=== PATIENT | female | born 1975 | race African-American/Black ===

== ENCOUNTER 2016-09-17 01:46 | Emergency (ER) | payer OTHER ==
[2016-09-17] MEDS ORDERED: NORCO 5/325MG TABLET (BULK) As Ordered ONE (02:21)
[2016-09-17] MEDS ORDERED: BACTRIM 160MG/800MG DS TAB As Ordered ONE (02:21)
--- NOTE | 2016-09-17 03:22 | EDDOCDS ---
Physician Documentation [facility] Name: Anayeli Del Toro Age: 40 yrs Sex: Female : 1975 Arrival Date: 09/17/2016 Time: 01:46 Bed TR8 Private MD: Disposition: 09/17/16 02:27 Discharged to Home/Self Care. Impression: Cutaneous abscess of buttock - RIGHT, EARLY, NONFLUCTUANT. - Condition is Stable. - Discharge Instructions: Abscess. - Prescriptions for Gary 5- 325 mg Oral Tablet - take 1 tablet by ORAL route every 6 hours As needed MDD: 4 tabs; 16 tablet. Bactrim DS 800- 160 mg Oral Tablet - take 1 tablet by ORAL route every 12 hours for 10 days; 20 tablet. - Medication Reconciliation, Local Pharmacy Hours form. - Follow up: Raymond Ingram DO; When: 2 - 3 days; Reason: Recheck today's complaints, Continuance of care. - Problem is new. - Symptoms have improved. - Notes: USE MEDICATIONS INSTRUTCED. USE WARM BATHES 2-3 TIMES PER DAY. CALL YOUR DOCTOR SUNDAY TO ARRANGE FOR A REFERRAL TO DR INGRAM FOR FURTHER EVALUATION. RETURN TO THE ER IF FEVER STARTS, INCREASED PAIN, SWELLING, OR OTHER CONCERNING SYMPTOMS BEGIN Historical: - Allergies: Tramadol HCl (pass out); - Home Meds: 1. Iron CR 250 mg Oral cpER daily (Last dose: 09/16/2016) 2. Skelaxin 800 mg Oral tab 1 tab 3-4 times daily as needed (Last dose: Unknown) 3. Tylenol 325 mg Oral tab 2 tabs every 4 hours (Last dose: Unknown) 4. Vitamin C 25 mg Oral tab 25 mg daily (Last dose: 09/16/2016) 5. Vitamin D Oral daily (Last dose: 09/16/2016) 6. Chantix 1 mg Oral tab 1 tab 2 times per day for Smoking Cessation (Last dose: 09/16/2016) - PMHx: Anemia; Diabetes - NIDDM: controlled; impingment syndrome right shouulder; vitamin d defiecency; - PSHx: Gastric Bypass; nasal scraping; - Social history: Smoking status: Patient uses tobacco products, light tobacco smoker. No barriers to communication noted, The patient speaks fluent [place] Citizen, Speaks appropriately for age. - Family history: Not pertinent. - : The pt / caregiver states he / she is not on anticoagulants. Home medication list is obtained from the patient. - Exposure Risk Screening:: None identified. 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 Vital Signs: 02:02 BP 111 / 74; Pulse 85; Resp 18; Temp 97.8(O); Pulse Ox 98% ; Weight 74.84 kg / 164.99 kmg1 lbs (R); Height 5 ft. 4 in. (162.56 cm) (R); Pain /; 02:02 Body Mass Index 28.32 (74.84 kg, 162.56 cm) [facility] MDM: 02:20 Trimethoprim-Sulfamethoxazole 160 mg-800 mg (DS) 1 tabs PO once ordered. ck7 02:20 HYDROcodone-acetaminophen 4 pack- 5 mg-325 mg 1 packets PO Per package directions; ck7 Dispense with patient. 1 po q4h prn for pain ordered. 02:46 Financial registration complete. hs2 02:47 [facility] Payment Agreement was scanned into [employer] and attached to record. hs2 Administered Medications: 02:25 Drug: Trimethoprim-Sulfamethoxazole 1 tabs [sulfamethoxazole 800 mg-trimethoprim 160 mg kmg1 tablet (1 tabs)] Route: PO; 02:25 Drug: HYDROcodone-acetaminophen 4 pack- 1 packets [hydrocodone 5 mg-acetaminophen 325 kmg1 mg tablet (1 tabs)] {Co-Signature: gerald (Raffi Giles RN).} Route: PO; Signatures: Melissa Piper RN RN [facility] Elvis Harley RPA-C RPA-Cck7 Argenis Lopez, Reg Reg hs2 Raffi duarte The chart was reviewed and I authenticate all verbal orders and agree with the evaluation and treatment provided.Attachments: 02:47 [facility] Payment Agreement hs2 [facility]
--- NOTE | 2016-09-17 03:22 | EDDOCDS ---
Nurse's Notes [facility] Name: Anayeli Del Toro Age: 40 yrs Sex: Female : 1975 Arrival Date: 09/17/2016 Time: 01:46 Bed TR8 Private MD: Diagnosis: Cutaneous abscess of buttock-RIGHT, EARLY, NONFLUCTUANT Presentation: 09/17 01:58 Presenting complaint: Patient states: Abscess in vaginal area. Suicide/Homicide risk [facility] assessment- the patient denies having any suicidal and/or homicidal ideations and does not present with any other emotional, behavioral or mental health complaints. Status: The patient is a dependent. Transition of care: patient was not received from another setting of care. 01:58 Acuity: ELIZABETH Level 4 [facility] 01:58 Method Of Arrival: Walkin/Carried/Asstd [facility] 01:58 Adult Sepsis Screening: The patient does not have new or worsening altered mentation. kmg1 Patient's respiratory rate is less than 22. Systolic blood pressure is greater than 100. Patient has a qSOFA score of 0- Negative Sepsis Screen. Triage Assessment: 01:58 The patient is triaged at the bedside. See Assessment in Nurses Notes section of ED km record. 02:02 General: Appears in no apparent distress, comfortable, Behavior is appropriate for age, kmg1 cooperative, pleasant. Pain: Location: groin Pain currently is 5 out of 10 on a pain scale. Quality of pain is described as sharp. HIV screening NA for this visit Offered previously. Derm: Abscess located on groin. 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 Historical: - Allergies: Tramadol HCl (pass out); - Home Meds: 1. Iron CR 250 mg Oral cpER daily (Last dose: 09/16/2016) 2. Skelaxin 800 mg Oral tab 1 tab 3-4 times daily as needed (Last dose: Unknown) 3. Tylenol 325 mg Oral tab 2 tabs every 4 hours (Last dose: Unknown) 4. Vitamin C 25 mg Oral tab 25 mg daily (Last dose: 09/16/2016) 5. Vitamin D Oral daily (Last dose: 09/16/2016) 6. Chantix 1 mg Oral tab 1 tab 2 times per day for Smoking Cessation (Last dose: 09/16/2016) - PMHx: Anemia; Diabetes - NIDDM: controlled; impingment syndrome right shouulder; vitamin d defiecency; - PSHx: Gastric Bypass; nasal scraping; - Social history: Smoking status: Patient uses tobacco products, light tobacco smoker. No barriers to communication noted, The patient speaks fluent [place]i, Speaks appropriately for age. - Family history: Not pertinent. - : The pt / caregiver states he / she is not on anticoagulants. Home medication list is obtained from the patient. - Exposure Risk Screening:: None identified. Screenin: Screening information is obtained from the patient. Fall risk: No risks identified. km Assistance ADL's: requires no assistance with activities of daily living. Abuse/DV Screen: The patient / caregiver reports he/she is: not in a situation that causes fear, pain or injury. Nutritional screening: No deficits noted. Advance Directives: There is no active DNR order. home support is adequate. Assessment: : General: No change in prior assessment. See triage assessment. [facility] Vital Signs: 02:02 BP 111 / 74; Pulse 85; Resp 18; Temp 97.8(O); Pulse Ox 98% ; Weight 74.84 kg (R); kmg1 Height 5 ft. 4 in. (162.56 cm) (R); Pain 5/10; 02:02 Body Mass Index 28.32 (74.84 kg, 162.56 cm) [facility] Vitals: 02:02 Log In Time: September 17, 2016 at 01:48. [facility] ED Course: 01:47 Patient visited by Argenis Lopez Reg. hs2 01:47 Patient moved to Waiting hs2 01:59 Triage Initiated kmg1 02:18 Elvis Harley RPA-C is PHCP. ck7 02:18 Warren Padilla DO is Attending Physician. ck7 02:19 Patient visited by Elvis Harley RPA-C. ck7 02:19 Patient moved to Triage 1 ajs 02:19 Patient moved to Waiting ck7 02:19 Patient moved to Triage 1 ajs 02:27 Raymond Ingram DO is Referral Physician. ck7 02:27 The patient / caregiver is instructed regarding the plan of care and ED course. kmg1 :27 No IV's were initiated during this patient's visit. Assisted Provider with vaginal exam.kmg1 02:47 [facility] Payment Agreement was scanned into [employer] and attached to record. hs2 02:57 Patient moved to TR8 [facility] Administered Medications: 02:25 Drug: Trimethoprim-Sulfamethoxazole 1 tabs [sulfamethoxazole 800 mg-trimethoprim 160 mg kmg1 tablet (1 tabs)] Route: PO; 02:25 Drug: HYDROcodone-acetaminophen 4 pack- 1 packets [hydrocodone 5 mg-acetaminophen 325 kmg1 mg tablet (1 tabs)] {Co-Signature: gerald (Raffi Giles RN).} Route: PO; Order Results: There are currently no results for this order. Outcome: 02:27 Discharge ordered by Provider. ck7 02:45 Discharge Assessment: Patient awake, alert and oriented x 3. No cognitive and/or kmg1 functional deficits noted. Patient verbalized understanding of disposition instructions. Patient awake and alert. patient administered narcotics - no. The following High Risk Discharge criteria are identified: None. Discharged to home ambulatory. Condition: stable. Discharge instructions given to patient, Instructed on discharge instructions, follow up and referral plans. medication usage, Demonstrated understanding of instructions, medications, Pt was receptive of discharge instructions/ teaching. Prescriptions given X 2. No special radiology studies were completed. Property sent home with patient. 03:[address] [facility] Signatures: Melissa Piper RN RN g1 Hillary Mcdonald Christopher, RPA-C RPA-Cck7 Argenis Lopez, Reg Reg hs2 Raffi duarte MTDD
--- NOTE | 2016-09-19 04:22 | EDDOCDS ---
Physician Documentation [facility] Name: Anayeli Del Toro Age: 40 yrs Sex: Female : 1975 Arrival Date: 09/17/2016 Time: 01:46 Bed TR8 Private MD: Disposition: 09/17/16 02:27 Discharged to Home/Self Care. Impression: Cutaneous abscess of buttock - RIGHT, EARLY, NONFLUCTUANT. - Condition is Stable. - Discharge Instructions: Abscess. - Prescriptions for Jaroso 5- 325 mg Oral Tablet - take 1 tablet by ORAL route every 6 hours As needed MDD: 4 tabs; 16 tablet. Bactrim DS 800- 160 mg Oral Tablet - take 1 tablet by ORAL route every 12 hours for 10 days; 20 tablet. - Medication Reconciliation, Local Pharmacy Hours form. - Follow up: Raymond Ingram DO; When: 2 - 3 days; Reason: Recheck today's complaints, Continuance of care. - Problem is new. - Symptoms have improved. - Notes: USE MEDICATIONS INSTRUTCED. USE WARM BATHES 2-3 TIMES PER DAY. CALL YOUR DOCTOR SUNDAY TO ARRANGE FOR A REFERRAL TO DR INGRAM FOR FURTHER EVALUATION. RETURN TO THE ER IF FEVER STARTS, INCREASED PAIN, SWELLING, OR OTHER CONCERNING SYMPTOMS BEGIN Historical: - Allergies: Tramadol HCl (pass out); - Home Meds: 1. Iron CR 250 mg Oral cpER daily (Last dose: 09/16/2016) 2. Skelaxin 800 mg Oral tab 1 tab 3-4 times daily as needed (Last dose: Unknown) 3. Tylenol 325 mg Oral tab 2 tabs every 4 hours (Last dose: Unknown) 4. Vitamin C 25 mg Oral tab 25 mg daily (Last dose: 09/16/2016) 5. Vitamin D Oral daily (Last dose: 09/16/2016) 6. Chantix 1 mg Oral tab 1 tab 2 times per day for Smoking Cessation (Last dose: 09/16/2016) - PMHx: Anemia; Diabetes - NIDDM: controlled; impingment syndrome right shouulder; vitamin d defiecency; - PSHx: Gastric Bypass; nasal scraping; - Social history: Smoking status: Patient uses tobacco products, light tobacco smoker. No barriers to communication noted, The patient speaks fluent [place], Speaks appropriately for age. - Family history: Not pertinent. - : The pt / caregiver states he / she is not on anticoagulants. Home medication list is obtained from the patient. - Exposure Risk Screening:: None identified. 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 4 in. (162.56 cm) (R); Pain 5/10; 02:02 Body Mass Index 28.32 (74.84 kg, 162.56 cm) [facility] MDM: 02:20 Trimethoprim-Sulfamethoxazole 160 mg-800 mg (DS) 1 tabs PO once ordered. ck7 02:20 HYDROcodone-acetaminophen 4 pack- 5 mg-325 mg 1 packets PO Per package directions; ck7 Dispense with patient. 1 po q4h prn for pain ordered. 02:46 Financial registration complete. hs2 02:47 [facility] Payment Agreement was scanned into [employer] and attached to record. hs2 22:30 T-Sheet-- Draft Copy was scanned into [employer] and attached to record. klr Administered Medications: 02:25 Drug: Trimethoprim-Sulfamethoxazole 1 tabs [sulfamethoxazole 800 mg-trimethoprim 160 mg kmg1 tablet (1 tabs)] Route: PO; 02:25 Drug: HYDROcodone-acetaminophen 4 pack- 1 packets [hydrocodone 5 mg-acetaminophen 325 kmg1 mg tablet (1 tabs)] {Co-Signature: gerald (Raffi Giles RN).} Route: PO; Signatures: Melissa Piper, RN RN kmg1 Elvis Harley, JANIS-C RPA-Cck7 Argenis Lopez, Reg Reg hs2 Carey Loyd RN The chart was reviewed and I authenticate all verbal orders and agree with the evaluation and treatment provided.Attachments: 02:47 [facility] Payment Agreement hs2 22:30 T-Sheet-- Draft Copy klr Chart Complete MTDD
--- NOTE | 2016-09-19 04:22 | EDDOCDS ---
Physician Documentation [facility] Name: Anayeli Del Toro Age: 40 yrs Sex: Female : 1975 Arrival Date: 09/17/2016 Time: 01:46 Bed TR8 Private MD: Disposition: 09/17/16 02:27 Discharged to Home/Self Care. Impression: Cutaneous abscess of buttock - RIGHT, EARLY, NONFLUCTUANT. - Condition is Stable. - Discharge Instructions: Abscess. - Prescriptions for Alpha 5- 325 mg Oral Tablet - take 1 tablet by ORAL route every 6 hours As needed MDD: 4 tabs; 16 tablet. Bactrim DS 800- 160 mg Oral Tablet - take 1 tablet by ORAL route every 12 hours for 10 days; 20 tablet. - Medication Reconciliation, Local Pharmacy Hours form. - Follow up: Raymond Ingram DO; When: 2 - 3 days; Reason: Recheck today's complaints, Continuance of care. - Problem is new. - Symptoms have improved. - Notes: USE MEDICATIONS INSTRUTCED. USE WARM BATHES 2-3 TIMES PER DAY. CALL YOUR DOCTOR SUNDAY TO ARRANGE FOR A REFERRAL TO DR INGRAM FOR FURTHER EVALUATION. RETURN TO THE ER IF FEVER STARTS, INCREASED PAIN, SWELLING, OR OTHER CONCERNING SYMPTOMS BEGIN Historical: - Allergies: Tramadol HCl (pass out); - Home Meds: 1. Iron CR 250 mg Oral cpER daily (Last dose: 09/16/2016) 2. Skelaxin 800 mg Oral tab 1 tab 3-4 times daily as needed (Last dose: Unknown) 3. Tylenol 325 mg Oral tab 2 tabs every 4 hours (Last dose: Unknown) 4. Vitamin C 25 mg Oral tab 25 mg daily (Last dose: 09/16/2016) 5. Vitamin D Oral daily (Last dose: 09/16/2016) 6. Chantix 1 mg Oral tab 1 tab 2 times per day for Smoking Cessation (Last dose: 09/16/2016) - PMHx: Anemia; Diabetes - NIDDM: controlled; impingment syndrome right shouulder; vitamin d defiecency; - PSHx: Gastric Bypass; nasal scraping; - Social history: Smoking status: Patient uses tobacco products, light tobacco smoker. No barriers to communication noted, The patient speaks fluent Fijian, Speaks appropriately for age. - Family history: Not pertinent. - : The pt / caregiver states he / she is not on anticoagulants. Home medication list is obtained from the patient. - Exposure Risk Screening:: None identified. 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 4 in. (162.56 cm) (R); Pain 5/10; 02:02 Body Mass Index 28.32 (74.84 kg, 162.56 cm) [facility] MDM: 02:20 Trimethoprim-Sulfamethoxazole 160 mg-800 mg (DS) 1 tabs PO once ordered. ck7 02:20 HYDROcodone-acetaminophen 4 pack- 5 mg-325 mg 1 packets PO Per package directions; ck7 Dispense with patient. 1 po q4h prn for pain ordered. 02:46 Financial registration complete. hs2 02:47 [facility] Payment Agreement was scanned into [employer] and attached to record. hs2 22:30 T-Sheet-- Draft Copy was scanned into [employer] and attached to record. klr Administered Medications: 02:25 Drug: Trimethoprim-Sulfamethoxazole 1 tabs [sulfamethoxazole 800 mg-trimethoprim 160 mg kmg1 tablet (1 tabs)] Route: PO; 02:25 Drug: HYDROcodone-acetaminophen 4 pack- 1 packets [hydrocodone 5 mg-acetaminophen 325 kmg1 mg tablet (1 tabs)] {Co-Signature: gerald (Raffi Giles RN).} Route: PO; Signatures: Melissa Piper, RN RN kmg1 Elvis Harley, JANIS-C RPA-Cck7 Argenis Lopez, Reg Reg hs2 Carey Loyd RN The chart was reviewed and I authenticate all verbal orders and agree with the evaluation and treatment provided.Attachments: 02:47 [facility] Payment Agreement hs2 22:30 T-Sheet-- Draft Copy klr Chart Complete MTDD
--- NOTE | 2016-09-19 04:22 | EDDOCDS ---
Nurse's Notes [facility] Name: Anayeli Del Toro Age: 40 yrs Sex: Female : 1975 Arrival Date: 09/17/2016 Time: 01:46 Bed TR8 Private MD: Diagnosis: Cutaneous abscess of buttock-RIGHT, EARLY, NONFLUCTUANT Presentation: 09/17 01:58 Presenting complaint: Patient states: Abscess in vaginal area. Suicide/Homicide risk [facility] assessment- the patient denies having any suicidal and/or homicidal ideations and does not present with any other emotional, behavioral or mental health complaints. Status: The patient is a dependent. Transition of care: patient was not received from another setting of care. 01:58 Acuity: ELIZABETH Level 4 [facility] 01:58 Method Of Arrival: Walkin/Carried/Asstd [facility] 01:58 Adult Sepsis Screening: The patient does not have new or worsening altered mentation. kmg1 Patient's respiratory rate is less than 22. Systolic blood pressure is greater than 100. Patient has a qSOFA score of 0- Negative Sepsis Screen. Triage Assessment: 01:58 The patient is triaged at the bedside. See Assessment in Nurses Notes section of ED km record. 02:02 General: Appears in no apparent distress, comfortable, Behavior is appropriate for age, kmg1 cooperative, pleasant. Pain: Location: groin Pain currently is 5 out of 10 on a pain scale. Quality of pain is described as sharp. HIV screening NA for this visit Offered previously. Derm: Abscess located on groin. 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 Iron CR 250 mg Oral cpER daily (Last dose: 09/16/2016) 2. Skelaxin 800 mg Oral tab 1 tab 3-4 times daily as needed (Last dose: Unknown) 3. Tylenol 325 mg Oral tab 2 tabs every 4 hours (Last dose: Unknown) 4. Vitamin C 25 mg Oral tab 25 mg daily (Last dose: 09/16/2016) 5. Vitamin D Oral daily (Last dose: 09/16/2016) 6. Chantix 1 mg Oral tab 1 tab 2 times per day for Smoking Cessation (Last dose: 09/16/2016) - PMHx: Anemia; Diabetes - NIDDM: controlled; impingment syndrome right shouulder; vitamin d defiecency; - PSHx: Gastric Bypass; nasal scraping; - Social history: Smoking status: Patient uses tobacco products, light tobacco smoker. No barriers to communication noted, The patient speaks fluent [place]an, Speaks appropriately for age. - Family history: Not pertinent. - : The pt / caregiver states he / she is not on anticoagulants. Home medication list is obtained from the patient. - Exposure Risk Screening:: None identified. Screenin: Screening information is obtained from the patient. Fall risk: No risks identified. km Assistance ADL's: requires no assistance with activities of daily living. Abuse/DV Screen: The patient / caregiver reports he/she is: not in a situation that causes fear, pain or injury. Nutritional screening: No deficits noted. Advance Directives: There is no active DNR order. home support is adequate. Assessment: : General: No change in prior assessment. See triage assessment. [facility] Vital Signs: 02:02 BP 111 / 74; Pulse 85; Resp 18; Temp 97.8(O); Pulse Ox 98% ; Weight 74.84 kg (R); kmg1 Height 5 ft. 4 in. (162.56 cm) (R); Pain 5/10; 02:02 Body Mass Index 28.32 (74.84 kg, 162.56 cm) [facility] Vitals: 02:02 Log In Time: September 17, 2016 at 01:48. [facility] ED Course: 01:47 Patient visited by Argenis Lopez Reg. hs2 01:47 Patient moved to Waiting hs2 01:59 Triage Initiated kmg1 02:18 Elvis Harley RPA-C is PHCP. ck7 02:18 Warren Padilla DO is Attending Physician. ck7 02:19 Patient visited by Elvis Harley RPA-C. ck7 02:19 Patient moved to Triage 1 ajs 02:19 Patient moved to Waiting ck7 02:19 Patient moved to Triage 1 ajs 02:27 Raymond Ingram DO is Referral Physician. ck7 02:27 The patient / caregiver is instructed regarding the plan of care and ED course. kmg1 :27 No IV's were initiated during this patient's visit. Assisted Provider with vaginal exam.kmg1 02:47 [facility] Payment Agreement was scanned into [employer] and attached to record. hs2 02:57 Patient moved to [place] [id number] 22:30 T-Sheet-- Draft Copy was scanned into [employer] and attached to record. klr Administered Medications: 02:25 Drug: Trimethoprim-Sulfamethoxazole 1 tabs [sulfamethoxazole 800 mg-trimethoprim 160 mg kmg1 tablet (1 tabs)] Route: PO; 02:25 Drug: HYDROcodone-acetaminophen 4 pack- 1 packets [hydrocodone 5 mg-acetaminophen 325 kmg1 mg tablet (1 tabs)] {Co-Signature: gerald (Raffi Giles RN).} Route: PO; Order Results: There are currently no results for this order. Outcome: 02:27 Discharge ordered by Provider. ck7 02:45 Discharge Assessment: Patient awake, alert and oriented x 3. No cognitive and/or kmg1 functional deficits noted. Patient verbalized understanding of disposition instructions. Patient awake and alert. patient administered narcotics - no. The following High Risk Discharge criteria are identified: None. Discharged to home ambulatory. Condition: stable. Discharge instructions given to patient, Instructed on discharge instructions, follow up and referral plans. medication usage, Demonstrated understanding of instructions, medications, Pt was receptive of discharge instructions/ teaching. Prescriptions given X 2. No special radiology studies were completed. Property sent home with patient. 03:21 Patient left the ED. [facility] Signatures: Melissa Piper, RN RN g1 Hillary Mcdonald Christopher, RPA-C RPA-Cck7 Argenis Lopez, Reg Reg 2 Carey Loyd r Raffi duarte Chart Complete MTDD
== END 2016-09-17 03:21 | disposition home or self-care (01) ==
LOC: M ED 01:46
DX: L02.31 Cutaneous abscess of buttock (principal); E11.9 Type 2 diabetes mellitus without complications; D64.9 Anemia, unspecified; E55.9 Vitamin D deficiency, unspecified; M75.41 Impingement syndrome of right shoulder; Z79.899 Other long term (current) drug therapy; Z88.5 Allergy status to narcotic agent; Z98.84 Bariatric surgery status

== ENCOUNTER → 2017-03-27 | Outpatient (REF) | payer OTHER | LOC: M SFHCLERA 09:33 | PROVIDERS: ATTEND Nurse Practitioner Family | DX: R30.0 Dysuria (principal) ==

== ENCOUNTER → 2017-10-01 | Outpatient (CLI) | payer OTHER | LOC: M RAD 13:36 | DX: N63.20 Unspecified lump in the left breast, unspecified quadrant (principal); Z80.3 Family history of malignant neoplasm of breast | CPT/HCPCS: 77066 ==

== ENCOUNTER → 2018-05-17 | Outpatient (REF) | payer OTHER | LOC: M LAB REF 19:11 | DX: N39.0 Urinary tract infection, site not specified (principal) ==

== ENCOUNTER → 2018-11-01 | Outpatient (CLI) | payer OTHER ==
--- NOTE | 2018-11-02 07:19 | REP ---
LEFT BREAST ULTRASOUND: 11/01/2018. CLINICAL HISTORY: Palpable lump periareolar region left breast for 1 year intermittently painful, some changes associated with it each month. Palpable finding of 4-o'clock position. FINDINGS: Scanning left breast from 3-o'clock position to 6-o'clock position with palpable lump at 4- o'clock position. There is a hypoechoic area in the dermal region of 1.8 x 1.8 x 0.4 cm. It is near the nipple. It has internal echoes with only trace amount of through transmission and no shadowing. No color flow within. IMPRESSION: BIRADS 0: BI-RADS/ACR category 0 mammogram, Incomplete: Need additional imaging evaluation and/or prior mammograms for comparison. Recommend the patient have bilateral mammogram with diagnostic mammogram of the left side. She is due for annual mammogram with her previous exam 10/01/2017. The sonographic findings most likely represent inspissated secretions within a sebaceous cyst or similar finding. Nevertheless, correlation with mammography suggested. Electronically Signed by Yefri Tsai MD 11/02/2018 12:03 P
== END ==
LOC: M RAD 13:37
PROVIDERS: ATTEND Family Medicine
DX: N63.23 Unspecified lump in the left breast, lower outer quadrant (principal)

== ENCOUNTER → 2018-11-15 | Outpatient (REF) | payer OTHER | LOC: M SFHCPLAZ 12:53 | PROVIDERS: ATTEND Internal Medicine Rheumatology | DX: M25.50 Pain in unspecified joint (principal); Z98.84 Bariatric surgery status; E11.42 Type 2 diabetes mellitus with diabetic polyneuropathy ==

== ENCOUNTER → 2018-11-15 | Outpatient (CLI) | payer OTHER ==
--- NOTE | 2018-11-15 17:11 | REP ---
BILATERAL MAMMOGRAM WITH DIAGNOSTIC MAMMOGRAM LEFT BREAST AND LEFT BREAST ULTRASOUND: Family history of breast cancer at age 45 in maternal aunt and at age 25 in a maternal cousin and at age 39 in maternal cousin. Tyrer-zick lifetime risk of breast cancer 13.4%. There is a history of a palpable lump near the left nipple laterally for the past year fluctuating in size. The area is marked on the skin with a triangular marker and additional spot compression views of the area are performed. Comparison is made with prior study 10/01/2017 as well as other prior exams. There is mild to moderate symmetrical fibroglandular tissue bilaterally which appears unchanged. There is no mass or architectural distortion. No suspicious clusters of microcalcifications are seen. Real-time sonographic evaluation of the left breast are performed laterally near the nipple. There is again noted an oval superficial hypoechoic area which appears to be in the skin measuring 9 x 4 x 11 mm. This has decreased in size since the prior ultrasound of 11/01/2018 at which time it measured 18 x 4 x 18 mm. This may represent a sebaceous cyst. It appears to be benign. IMPRESSION: ACR 2 benign. No mass or clustered microcalcifications mammographically. In the left breast laterally near the nipple at the site of the palpable lump there is an oval hypoechoic area which appears to be in the skin measuring 9 x 4 x 11 mm. This has decreased in size since the recent ultrasound of 11/01/2018 consistent with a benign entity, possibly a sebaceous cyst. Recommend followup mammogram in one year. This mammogram was interpreted with the aid of an FDA-approved computer-aided detection system. The patient states she had a clinical breast exam in 02/2018. The patient letter being requested was M2. Electronically Signed by Raymond Diaz MD 11/18/2018 12:43 P
== END ==
LOC: M RAD 14:39
PROVIDERS: ATTEND Family Medicine
DX: N63.20 Unspecified lump in the left breast, unspecified quadrant (principal); Z80.3 Family history of malignant neoplasm of breast
CPT/HCPCS: 76642; 77066; G0463

== ENCOUNTER → 2020-11-04 | Outpatient (CLI) | payer OTHER ==
--- NOTE | 2020-11-04 09:37 | REP ---
INDICATION: S/P FALL/TRIPPING INJURY, AFFECTING SECOND TOE, HX OF TOE FX COMPARISON: None. TECHNIQUE: AP, lateral, bilateral oblique views left foot. FINDINGS: Acute oblique fracture of the 2nd toe proximal phalanx. Remainder of the examination is normal. IMPRESSION: Nondisplaced fracture of the 2nd toe proximal phalanx.. <Electronically signed by Richie Sanchez > 11/04/20 0933
== END ==
LOC: M ADAMS 08:46
PROVIDERS: ATTEND Nurse Practitioner Family
DX: S92.514A Nondisplaced fracture of proximal phalanx of right lesser toe(s), initial encounter for closed fracture (principal); W19.XXXA Unspecified fall, initial encounter; Y92.9 Unspecified place or not applicable; Y99.9 Unspecified external cause status; M79.674 Pain in right toe(s); M79.675 Pain in left toe(s)

== ENCOUNTER 2021-10-03 16:41 | Inpatient (IN) | payer OTHER ==
[~2021-10-03] VITALS: Ht 162.6 cm; Wt 68.2 kg
[2021-10-03 18:02] LABS: BASO # 0.1 10^3/uL (0.0-0.2); BASO % 0.8 % (0.0-1.0); EOS # 0.3 10^3/uL (0.0-0.5); EOS % 1.8 % (0.0-3.0); LYMPH # 3.5 10^3/uL (1.5-5.0); LYMPH % 25.1 % (24.0-44.0); MEAN CORPUSCULAR HEMOGLOBIN 16.5 pg (27.0-33.0); MEAN CORPUSCULAR HGB CONC 25.4 g/dl (32.0-36.5); MEAN CORPUSCULAR VOLUME 64.9 fl (80.0-96.0); MONO % 7.1 % (2.0-8.0); NEUTROPHILS # 8.9 10^3/uL (1.5-8.5); NEUTROPHILS % 64.9 % (36.0-66.0); PLATELET COUNT, AUTOMATED 407 10^3/uL (150-450); RED BLOOD COUNT 2.91 10^6/uL (4.00-5.40); WHITE BLOOD COUNT 13.8 10^3/uL (4.0-10.0)
[2021-10-03 18:10] LABS: HEMATOCRIT 18.9 % (36.0-47.0); HEMOGLOBIN 4.8 g/dl (12.0-15.5)
[2021-10-03 18:17] LABS: BLOOD UREA NITROGEN 12 MG/DL (7-18); CALCIUM LEVEL 8.2 MG/DL (8.5-10.1); CARBON DIOXIDE LEVEL 24 MEQ/L (21-32); CHLORIDE LEVEL 109 MEQ/L (98-107); CREATININE FOR GFR 0.56 MG/DL (0.55-1.30); GLOMERULAR FILTRATION RATE > 60.0 (>58); GLUCOSE, FASTING 82 MG/DL (70-100); INR 0.94; POTASSIUM SERUM 3.9 MEQ/L (3.5-5.1); SODIUM LEVEL 140 MEQ/L (136-145)
[2021-10-03 20:09] LABS: ALT/SGPT 11 U/L (12-78); BLOOD UREA NITROGEN 13 MG/DL (7-18); CALCIUM LEVEL 7.8 MG/DL (8.5-10.1); CARBON DIOXIDE LEVEL 24 MEQ/L (21-32); CHLORIDE LEVEL 111 MEQ/L (98-107); CREATININE FOR GFR 0.49 MG/DL (0.55-1.30); GLOMERULAR FILTRATION RATE > 60.0 (>58); GLUCOSE, FASTING 83 MG/DL (70-100); POTASSIUM SERUM 3.8 MEQ/L (3.5-5.1); SODIUM LEVEL 142 MEQ/L (136-145)
[2021-10-03 20:10] LABS: ALBUMIN 2.9 GM/DL (3.2-5.2); BILIRUBIN,DIRECT < 0.1 MG/DL (0.0-0.2); BILIRUBIN,TOTAL 0.1 MG/DL (0.2-1.0); IRON (FE) 8 UG/DL (50-170); PERCENT SATURATION 1.7 % (13.2-45.0); TOTAL IRON BINDING CAPACITY 467 UG/DL (250-450); TOTAL PROTEIN 6.3 GM/DL (6.4-8.2)
[2021-10-03] MEDS: PANTOPRAZOLE 40MG VIAL (C9113 PER 1) IV SCH (21:00)
[2021-10-03] MEDS ORDERED: HumaLOG INSULIN (NovoLOG) PER UNIT SC SCH (21:00)
[2021-10-03] MEDS ORDERED: C 50TAB PO (21:04)
[2021-10-03] MEDS ORDERED: SFHIBU200 PO (21:04)
[2021-10-03] MEDS ORDERED: GABA-1171 PO (21:04)
[2021-10-03] MEDS ORDERED: ERGO500029 PO (21:04)
[2021-10-03] MEDS ORDERED: FERR29CA PO (21:04)
[2021-10-03] MEDS ORDERED: LIDO1PAD TOP (21:04)
[2021-10-03] MEDS ORDERED: HOME MED LIST COMPLETE! XX SCH (21:05)
[2021-10-03 21:09] LABS: VITAMIN B12 LEVEL 475 PG/ML (247-911)
[2021-10-03 21:37] LABS: FERRITIN 3 NG/ML (8-252)
[2021-10-03 22:40] VITALS: BP 99/54
[2021-10-03 22:55] VITALS: BP 100/56
[2021-10-03] MEDS ORDERED: ACETAMINOPHEN TAB 650MG DOSE (2X325MG) PO PRN (23:10)
[2021-10-03] MEDS ORDERED: GLUCOSE 4GM CHEW TABLET PO PRN (23:10)
[2021-10-03] MEDS ORDERED: GLUCAGON INJ 1MG VIAL SC PRN (23:10)
[2021-10-03] MEDS ORDERED: DEXTROSE 50% 50 ML SYRINGE IV PRN (23:10)
[2021-10-03 23:55] VITALS: BP 104/54
[2021-10-04] VITALS (11 sets, daily range): BP systolic 95–120; BP diastolic 53–73
[2021-10-04] MEDS: HumaLOG INSULIN (NovoLOG) PER UNIT SC SCH ×2 (07:30→12:00)
[2021-10-04 07:33] LABS: HEMATOCRIT 24.9 % (36.0-47.0); MEAN CORPUSCULAR HEMOGLOBIN 19.1 pg (27.0-33.0); MEAN CORPUSCULAR HGB CONC 28.1 g/dl (32.0-36.5); PLATELET COUNT, AUTOMATED 399 10^3/uL (150-450); RED BLOOD COUNT 3.66 10^6/uL (4.00-5.40); WHITE BLOOD COUNT 8.9 10^3/uL (4.0-10.0)
[2021-10-04 07:59] LABS: BLOOD UREA NITROGEN 10 MG/DL (7-18); CARBON DIOXIDE LEVEL 22 MEQ/L (21-32); CHLORIDE LEVEL 114 MEQ/L (98-107); CREATININE FOR GFR 0.39 MG/DL (0.55-1.30); FERRITIN 4 NG/ML (8-252); GLOMERULAR FILTRATION RATE > 60.0 (>58); GLUCOSE, FASTING 79 MG/DL (70-100); IRON (FE) 220 UG/DL (50-170); LDH LACTATE DEHYDROGENASE 179 U/L (84-246); PERCENT SATURATION 53.1 % (13.2-45.0); POTASSIUM SERUM 3.6 MEQ/L (3.5-5.1); SODIUM LEVEL 142 MEQ/L (136-145); TOTAL IRON BINDING CAPACITY 414 UG/DL (250-450)
[2021-10-04] MEDS ORDERED: CYANOCOBALAMIN 500 MCG TAB PO SCH (09:00)
[2021-10-04 10:28] LABS: HEMATOCRIT 26.4 % (36.0-47.0); HEMOGLOBIN 7.4 g/dl (12.0-15.5); MEAN CORPUSCULAR HEMOGLOBIN 19.6 pg (27.0-33.0); MEAN CORPUSCULAR VOLUME 69.8 fl (80.0-96.0); PLATELET COUNT, AUTOMATED 386 10^3/uL (150-450); RED BLOOD COUNT 3.78 10^6/uL (4.00-5.40); WHITE BLOOD COUNT 9.2 10^3/uL (4.0-10.0)
[2021-10-04] MEDS: PANTOPRAZOLE 40MG VIAL (C9113 PER 1) IV SCH (10:37)
[2021-10-04] MEDS ORDERED: IRON SUCROSE 200 MG in NS 100 ML IV ONE (12:00)
[2021-10-04] MEDS ORDERED: POTASSIUM CHLORIDE 10MEQ SR TABLET PO ONE (13:25)
[2021-10-04 14:56] LABS: HEMATOCRIT 30.9 % (36.0-47.0); HEMOGLOBIN 8.9 g/dl (12.0-15.5)
[2021-10-04] MEDS ORDERED: VITA500T40 PO (15:28)
[2021-10-07] MEDS ORDERED: ACET325C5 PO (13:03)
== END 2021-10-04 16:44 | disposition home or self-care (01) | DRG 812 ==
LOC: M ED 16:41 → M ED INP 23:10 → ENRESERV 10-04 14:45
PROVIDERS: ADMIT Family Medicine; ATTEND Internal Medicine
PROC: 30233N1 Transfusion of Nonautologous Red Blood Cells into Peripheral Vein, Percutaneous Approach (ICD-10-PCS; principal; 2021-10-03)
DX: D50.9 Iron deficiency anemia, unspecified (principal); E11.9 Type 2 diabetes mellitus without complications; F17.210 Nicotine dependence, cigarettes, uncomplicated; Z79.899 Other long term (current) drug therapy; Z88.8 Allergy status to other drugs, medicaments and biological substances

== ENCOUNTER → 2022-01-11 | Outpatient (CLI) | payer OTHER ==
[~2022-01-11] MED LIST: ACET325C5 PO; C 50TAB PO; E-Z-PAQUE 96% w/w SUSP 176GM BTL As Ordered ONE; ERGO500029 PO; FERR29CA PO; GABA-1171 PO; IBUP200C33 PO; LIDO1PAD TOP; SFHIBU200 PO; VITA500T40 PO
== END ==
LOC: M RAD 07:59
PROVIDERS: ATTEND Internal Medicine Gastroenterology
DX: D50.9 Iron deficiency anemia, unspecified (principal); R68.81 Early satiety; R63.4 Abnormal weight loss

== ENCOUNTER → 2022-02-23 | Outpatient (CLI) | payer OTHER ==
[~2022-02-23] MED LIST changes: -E-Z-PAQUE 96% w/w SUSP 176GM BTL As Ordered ONE
== END ==
LOC: M PLAIMG 13:17
PROVIDERS: ATTEND Family Medicine
DX: M25.552 Pain in left hip (principal); M79.605 Pain in left leg

== ENCOUNTER → 2022-03-21 | Outpatient (CLI) | payer OTHER ==
[~2022-03-21] MED LIST changes: +GASTROGRAFIN SOLUTION 30ML (Q9963) As Ordered ONE; +ISOVUE-370 76% 100ML VIAL As Ordered ONE
== END ==
LOC: M RAD 12:07
PROVIDERS: ATTEND Internal Medicine Gastroenterology
DX: D50.9 Iron deficiency anemia, unspecified (principal); R10.9 Unspecified abdominal pain
CPT/HCPCS: 74177; Q9963; Q9967

== ENCOUNTER → 2022-06-19 | Outpatient (CLI) | payer OTHER ==
[~2022-06-19] MED LIST changes: -GASTROGRAFIN SOLUTION 30ML (Q9963) As Ordered ONE; +ISOVUE-300 61% 50ML VIAL As Ordered ONE; -ISOVUE-370 76% 100ML VIAL As Ordered ONE; +LIDOCAINE 1% MDV 20ML VIAL As Ordered ONE; +PROHANCE 279.3MG/ML 5ML VIAL As Ordered ONE
== END ==
LOC: M RADPRO 06:27
PROVIDERS: ATTEND Family Medicine
DX: S46.011A Strain of muscle(s) and tendon(s) of the rotator cuff of right shoulder, initial encounter (principal); X58.XXXA Exposure to other specified factors, initial encounter; Y92.9 Unspecified place or not applicable
CPT/HCPCS: 23350; 73223; 77002; A9576; Q9967

== ENCOUNTER → 2022-09-07 | Outpatient (CLI) | payer OTHER ==
[~2022-09-07] MED LIST changes: -ISOVUE-300 61% 50ML VIAL As Ordered ONE; -LIDOCAINE 1% MDV 20ML VIAL As Ordered ONE; -PROHANCE 279.3MG/ML 5ML VIAL As Ordered ONE
== END ==
LOC: M WHC 13:46
PROVIDERS: ATTEND Physician Assistant Medical
DX: Z12.31 Encounter for screening mammogram for malignant neoplasm of breast (principal)

== ENCOUNTER 2022-12-01 08:08 | Emergency (ER) | payer OTHER ==
[~2022-12-01] VITALS: Ht 162.6 cm; Wt 77.3 kg
[~2022-12-01 08:08] MED LIST changes: +ATOR1TAB19 PO; +DULO1CAP4 PO; +META1TAB22 PO; +METF-838 PO
[2022-12-01 09:09] LABS: BASO # 0.1 10^3/uL (0.0-0.2); BASO % 1.2 % (0.0-1.0); EOS # 0.1 10^3/uL (0.0-0.5); EOS % 1.7 % (0.0-3.0); HEMATOCRIT 37.4 % (36.0-47.0); HEMOGLOBIN 11.8 g/dl (12.0-15.5); LYMPH # 2.5 10^3/uL (1.5-5.0); LYMPH % 31.1 % (24.0-44.0); MEAN CORPUSCULAR HEMOGLOBIN 28.4 pg (27.0-33.0); MEAN CORPUSCULAR HGB CONC 31.6 g/dl (32.0-36.5); MEAN CORPUSCULAR VOLUME 89.9 fl (80.0-96.0); MONO # 0.6 10^3/uL (0.0-0.8); MONO % 7.1 % (2.0-8.0); NEUTROPHILS # 4.7 10^3/uL (1.5-8.5); NEUTROPHILS % 58.7 % (36.0-66.0); PLATELET COUNT, AUTOMATED 335 10^3/uL (150-450); RED BLOOD COUNT 4.16 10^6/uL (4.00-5.40)
[2022-12-01 09:37] LABS: ALBUMIN 3.4 G/DL (3.2-5.2); ALKALINE PHOSPHATASE 133 U/L (46-116); ALT/SGPT 20 U/L (7.0-40); AST/SGOT 35 U/L (<34); BILIRUBIN,DIRECT < 0.1 MG/DL (<0.4); BILIRUBIN,TOTAL 0.3 MG/DL (0.3-1.2); BLOOD UREA NITROGEN 7 MG/DL (9-23); CALCIUM LEVEL 8.7 MG/DL (8.5-10.1); CARBON DIOXIDE LEVEL 24 MMOL/L (20-31); CHLORIDE LEVEL 110 MMOL/L (98-107); CREATININE FOR GFR 0.49 MG/DL (0.55-1.30); GLOMERULAR FILTRATION RATE > 60.0 (>58); GLUCOSE, FASTING 155 MG/DL (60-100); MAGNESIUM LEVEL 1.9 MG/DL (1.8-2.4); POTASSIUM SERUM 4.7 MMOL/L (3.5-5.1); SODIUM LEVEL 141 MMOL/L (136-145); TOTAL PROTEIN 6.7 G/DL (5.7-8.2)
[2022-12-01 09:38] LABS: FREE T4 0.79 NG/DL (0.89-1.76); THYROID STIMULATING HORMONE 0.618 uIU/ML (0.55-4.78)
[2022-12-01 09:46] LABS: HCG, SERUM QUALITATIVE NEGATIVE (NEGATIVE)
[2022-12-01] MEDS ORDERED: HOLTER MONITOR XX (10:26)
[2022-12-01 10:56] VITALS: BP 128/77
== END 2022-12-01 10:59 | disposition home or self-care (01) ==
LOC: M ED 08:08
DX: R00.2 Palpitations (principal); I49.3 Ventricular premature depolarization; E11.9 Type 2 diabetes mellitus without complications; F17.200 Nicotine dependence, unspecified, uncomplicated; Z98.84 Bariatric surgery status; Z88.6 Allergy status to analgesic agent; Z79.82 Long term (current) use of aspirin; Z79.891 Long term (current) use of opiate analgesic; Z79.02 Long term (current) use of antithrombotics/antiplatelets; Z79.899 Other long term (current) drug therapy

== ENCOUNTER 2022-12-06 09:20 | Day surgery (SDC) | payer OTHER ==
[~2022-12-06] VITALS: Ht 162.6 cm; Wt 77.1 kg
[~2022-12-06 09:20] MED LIST changes: +HOLTER MONITOR XX; +LIDOCAINE 2% 100MG/5ML SDV (FOR ANES.) As Ordered ONE; +MIDAZOLAM INJ 2MG/2ML VIAL As Ordered ONE; +ONDANSETRON 4MG 2ML VIAL As Ordered ONE; +fentaNYL 100 MCG/2 ML INJECTION As Ordered ONE; +propofoL 200 MG/20 ML VIAL As Ordered ONE
[2022-12-06 09:54] LABS: HEMATOCRIT 37.7 % (36.0-47.0)
[2022-12-06 10:22] LABS: BLOOD UREA NITROGEN 10 MG/DL (9-23); CALCIUM LEVEL 9.1 MG/DL (8.5-10.1); CARBON DIOXIDE LEVEL 26 MMOL/L (20-31); CHLORIDE LEVEL 109 MMOL/L (98-107); CREATININE FOR GFR 0.54 MG/DL (0.55-1.30); GLOMERULAR FILTRATION RATE > 60.0 (>58); GLUCOSE, FASTING 137 MG/DL (60-100); POTASSIUM SERUM 4.2 MMOL/L (3.5-5.1); SODIUM LEVEL 140 MMOL/L (136-145)
[2022-12-06] MEDS ORDERED: LR 1,000 ML IV SCH (11:15)
[2022-12-06] MEDS ORDERED: LIDOCAINE 1% SDV 5ML VIAL SC PRN (11:15)
[2022-12-06] MEDS ORDERED: ACETAMINOPHEN 1000MG 100ML IV BAG As Ordered ONE (11:42)
[2022-12-06] MEDS ORDERED: BUPIVACAINE HCL 0.25% 30ML VIAL As Ordered ONE (11:43)
[2022-12-06] MEDS ORDERED: oxyCODONE 5MG TAB PO ONE (12:20)
[2022-12-06 13:29] VITALS: BP 129/72
== END 2022-12-06 13:45 | disposition home or self-care (01) ==
LOC: M SDC 09:20
PROVIDERS: ATTEND Obstetrics & Gynecology
DX: N93.9 Abnormal uterine and vaginal bleeding, unspecified (principal); E78.5 Hyperlipidemia, unspecified; E11.9 Type 2 diabetes mellitus without complications; E04.1 Nontoxic single thyroid nodule; F17.210 Nicotine dependence, cigarettes, uncomplicated; Z79.84 Long term (current) use of oral hypoglycemic drugs; M79.7 Fibromyalgia; D64.9 Anemia, unspecified; Z88.8 Allergy status to other drugs, medicaments and biological substances; Z79.899 Other long term (current) drug therapy
CPT/HCPCS: 36415; 58563; 80048; 81025; 85014; 85018; 86850; 86900; 86901; 88305; 93005; A4264; J0131; J1100; J2250; J2405; J3010; S0020

== ENCOUNTER 2023-12-14 21:00 | Emergency (ER) | payer OTHER ==
[~2023-12-14] VITALS: Ht 162.6 cm; Wt 75.0 kg
[~2023-12-14 21:00] MED LIST changes: +DIPH50CA PO; -LIDOCAINE 2% 100MG/5ML SDV (FOR ANES.) As Ordered ONE; -MIDAZOLAM INJ 2MG/2ML VIAL As Ordered ONE; -ONDANSETRON 4MG 2ML VIAL As Ordered ONE; -fentaNYL 100 MCG/2 ML INJECTION As Ordered ONE; -propofoL 200 MG/20 ML VIAL As Ordered ONE
[2023-12-14 21:08] VITALS: TEMP 97.2
[2023-12-14] MEDS: NS 1,000 ML IV ONE (21:29)
[2023-12-14] MEDS: PANTOPRAZOLE 40MG VIAL IV ONE (21:30)
[2023-12-14] MEDS: METOCLOPRAMIDE INJ 10MG/2ML VIAL IV ONE (21:30)
[2023-12-14] MEDS: MORPHINE 4 MG/ML 1ML VIAL IV ONE (21:30)
[2023-12-14 21:47] LABS: BASO # 0.2 10^3/uL (0.0-0.2); BASO % 1.3 % (0.0-1.0); EOS # 0.3 10^3/uL (0.0-0.5); EOS % 2.5 % (0.0-3.0); HEMATOCRIT 28.6 % (36.0-47.0); HEMOGLOBIN 8.3 g/dl (12.0-15.5); LYMPH # 3.5 10^3/uL (1.5-5.0); LYMPH % 29.9 % (24.0-44.0); MEAN CORPUSCULAR HEMOGLOBIN 21.1 pg (27.0-33.0); MEAN CORPUSCULAR VOLUME 72.6 fl (80.0-96.0); MONO # 0.9 10^3/uL (0.0-0.8); MONO % 7.6 % (2.0-8.0); NEUTROPHILS # 6.9 10^3/uL (1.5-8.5); NEUTROPHILS % 58.4 % (36.0-66.0); PLATELET COUNT, AUTOMATED 354 10^3/uL (150-450); RED BLOOD COUNT 3.94 10^6/uL (4.00-5.40); WHITE BLOOD COUNT 11.7 10^3/uL (4.0-10.0)
[2023-12-14] MEDS ORDERED: ISOVUE-370 76% 100ML VIAL As Ordered ONE (22:05)
[2023-12-14 22:19] LABS: LIPASE 98 U/L (12-53)
[2023-12-14 22:21] LABS: ALBUMIN 3.3 G/DL (3.2-5.2); ALKALINE PHOSPHATASE 119 U/L (46-116); ALT/SGPT 20 U/L (7.0-40); AST/SGOT 20 U/L (<34); BILIRUBIN,DIRECT < 0.1 MG/DL (<0.4); BILIRUBIN,TOTAL 0.2 MG/DL (0.3-1.2); TOTAL PROTEIN 6.5 G/DL (5.7-8.2)
[2023-12-14 22:55] VITALS: O2SAT 98
[2023-12-14 23:00] VITALS: BP 111/72
[2023-12-14] MEDS ORDERED: REGL10TA6 PO (23:28)
[2023-12-14] MEDS ORDERED: COLA100C5 PO (23:28)
[2023-12-14 23:30] LABS: BLOOD UREA NITROGEN 10 MG/DL (9-23); CALCIUM LEVEL 8.8 MG/DL (8.5-10.1); CARBON DIOXIDE LEVEL 23 MMOL/L (20-31); CHLORIDE LEVEL 107 MMOL/L (98-107); CREATININE FOR GFR 0.54 MG/DL (0.55-1.30); GLOMERULAR FILTRATION RATE > 60.0 (>58); GLUCOSE, FASTING 212 MG/DL (60-100); POTASSIUM SERUM 3.8 MMOL/L (3.5-5.1); SODIUM LEVEL 137 MMOL/L (136-145)
[2023-12-14] MEDS: METOCLOPRAMIDE 10MG TAB PO ONE (23:36)
== END 2023-12-14 23:44 | disposition home or self-care (01) ==
LOC: M ED 21:00
DX: K56.600 Partial intestinal obstruction, unspecified as to cause (principal); E78.5 Hyperlipidemia, unspecified; F17.200 Nicotine dependence, unspecified, uncomplicated; M79.7 Fibromyalgia; Z98.84 Bariatric surgery status; Z88.6 Allergy status to analgesic agent; Z79.02 Long term (current) use of antithrombotics/antiplatelets; Z79.891 Long term (current) use of opiate analgesic; Z79.4 Long term (current) use of insulin; Z79.899 Other long term (current) drug therapy
CPT/HCPCS: 74174; 80047; 80048; 80076; 83605; 83690; 85025; 87040; 93041; 96361; 96374; 99284; C9113; J2765; Q9967

== ENCOUNTER 2024-06-21 10:43 | Observation (INO) | payer OTHER ==
[~2024-06-21] VITALS: Ht 160 cm; Wt 73.9 kg
[~2024-06-21 10:43] MED LIST changes: +COLA100C5 PO; +REGL10TA6 PO
[2024-06-21 11:54] LABS: BASO # 0.1 10^3/uL (0.0-0.2); BASO % 1.5 % (0.0-1.0); EOS # 0.2 10^3/uL (0.0-0.5); EOS % 2.3 % (0.0-3.0); HEMATOCRIT 26.2 % (36.0-47.0); LYMPH # 2.6 10^3/uL (1.5-5.0); LYMPH % 28.5 % (24.0-44.0); MEAN CORPUSCULAR HEMOGLOBIN 17.2 pg (27.0-33.0); MEAN CORPUSCULAR HGB CONC 26.3 g/dl (32.0-36.5); MEAN CORPUSCULAR VOLUME 65.2 fl (80.0-96.0); MONO # 0.6 10^3/uL (0.0-0.8); MONO % 6.6 % (2.0-8.0); NEUTROPHILS # 5.6 10^3/uL (1.5-8.5); NEUTROPHILS % 60.9 % (36.0-66.0); PLATELET COUNT, AUTOMATED 425 10^3/uL (150-450); RED BLOOD COUNT 4.02 10^6/uL (4.00-5.40); WHITE BLOOD COUNT 9.2 10^3/uL (4.0-10.0)
[2024-06-21 11:56] LABS: HEMOGLOBIN 6.9 g/dl (12.0-15.5)
[2024-06-21 12:05] LABS: INR 0.91; PARTIAL THROMBOPLASTIN TIME 27.5 SECONDS (24.8-34.2); PROTHROMBIN TIME 12.6 SECONDS (12.5-14.5)
[2024-06-21 12:16] LABS: ALBUMIN 3.2 G/DL (3.2-5.2); ALKALINE PHOSPHATASE 137 U/L (35-104); ALT/SGPT 12 U/L (7.0-40); AST/SGOT 21 U/L (<34); BILIRUBIN,DIRECT < 0.1 MG/DL (<0.4); BILIRUBIN,TOTAL 0.2 MG/DL (0.3-1.2); TOTAL PROTEIN 6.9 G/DL (5.7-8.2)
[2024-06-21] MEDS ORDERED: [UNRECOGNIZED DRUG - CODE] PO (13:34)
[2024-06-21] MEDS ORDERED: HOME MED LIST COMPLETE! XX SCH (13:35)
[2024-06-21 13:40] VITALS: BP 119/59; TEMP 98.1; O2SAT 100
[2024-06-21 14:36] VITALS: BP 102/58; TEMP 97.7; O2SAT 100
[2024-06-21] MEDS ORDERED: NICOTINE 21MG/24HR 1 EA TRANSDERMAL TD PRN (14:50)
[2024-06-21] MEDS ORDERED: MOM 30ML SUSPENSION UDC PO PRN (14:55)
[2024-06-21] MEDS ORDERED: SENNA 8.6 MG TAB (SENOKOT) PO PRN (14:55)
[2024-06-21 15:02] VITALS: BP 123/57; TEMP 98.6; O2SAT 99
[2024-06-21 15:15] LABS: IRON (FE) 10 UG/DL (50-170); PERCENT SATURATION 2.2 % (13.2-45.0); TOTAL IRON BINDING CAPACITY 450 UG/DL (250-425)
[2024-06-21 15:16] LABS: FREE T4 0.87 NG/DL (0.89-1.76)
[2024-06-21 15:17] LABS: FERRITIN 3.5 NG/ML (7.3-270.7); FOLATE > 24.0 NG/ML (>5.4); THYROID STIMULATING HORMONE 0.914 uIU/ML (0.55-4.78)
[2024-06-21 15:18] LABS: VITAMIN B12 LEVEL 545 PG/ML (211-911)
[2024-06-21] MEDS ORDERED: METAXALONE 800 MG TABLET PO PRN (15:20)
[2024-06-21] MEDS ORDERED: GABAPENTIN 100 MG CAP PO PRN (15:20)
[2024-06-21] MEDS ORDERED: PILL CUTTER 1 EACH XX PRN (15:25)
[2024-06-21 16:20] VITALS: BP 130/74; TEMP 97.7; O2SAT 90
[2024-06-21 16:25] LABS: APPEARANCE, URINE CLEAR (CLEAR); BACTERIA, URINE AUTO NEGATIVE (NEGATIVE); BILIRUBIN, URINE AUTO NEGATIVE (NEGATIVE); BLOOD, URINE BLOOD NEGATIVE (NEGATIVE); CALCIUM OXALATE CRYSTALS SMALL; COLOR, URINE YELLOW (YELLOW); GLUCOSE, URINE (UA) AUTO 1+ mg/dL (NEGATIVE); KETONE, URINE AUTO NEGATIVE (NEGATIVE); LEUKOCYTE ESTERASE, URINE AUTO NEGATIVE (NEGATIVE); NITRITE, URINE AUTO NEGATIVE (NEGATIVE); PROTEIN, URINE AUTO NEGATIVE (NEGATIVE); RBC, URINE AUTO 0 /HPF (0-3); SQUAMOUS EPITHELIAL CELL UR AU 0 /HPF (0-6); UROBILINOGEN, URINE AUTO 0.2 mg/dL (0.0-2.0); WBC, URINE AUTO 1 /HPF (0-3)
[2024-06-21 16:35] LABS: HEMOGLOBIN 7.8 g/dl (12.0-15.5); MEAN CORPUSCULAR HEMOGLOBIN 18.9 pg (27.0-33.0); MEAN CORPUSCULAR HGB CONC 27.9 g/dl (32.0-36.5); MEAN CORPUSCULAR VOLUME 67.8 fl (80.0-96.0); PLATELET COUNT, AUTOMATED 384 10^3/uL (150-450); RED BLOOD COUNT 4.13 10^6/uL (4.00-5.40); WHITE BLOOD COUNT 8.2 10^3/uL (4.0-10.0)
[2024-06-21] MEDS ORDERED: IPRATROPIUM 0.5MG/ALBUTEROL 2.5MG INH SOL UD 3ML (DUONEB) NEB PRN (17:35)
[2024-06-21] MEDS: VARENICLINE 1MG TABLET PO SCH (18:59)
[2024-06-21 19:48] VITALS: BP 115/68; TEMP 97.5; O2SAT 100
[2024-06-21] MEDS: IRON SUCROSE 100MG 5ML VIAL IV SCH (20:06)
[2024-06-21 22:52] VITALS: O2SAT 100
[2024-06-22 00:19] VITALS: BP 115/67; TEMP 98.8; O2SAT 100
[2024-06-22 04:00] VITALS: BP 110/66; TEMP 98.1; O2SAT 100
[2024-06-22 06:14] LABS: HEMATOCRIT 27.4 % (36.0-47.0); HEMOGLOBIN 7.7 g/dl (12.0-15.5); MEAN CORPUSCULAR HEMOGLOBIN 18.8 pg (27.0-33.0); MEAN CORPUSCULAR HGB CONC 28.1 g/dl (32.0-36.5); PLATELET COUNT, AUTOMATED 383 10^3/uL (150-450); RED BLOOD COUNT 4.09 10^6/uL (4.00-5.40); WHITE BLOOD COUNT 8.7 10^3/uL (4.0-10.0)
[2024-06-22 06:31] LABS: BLOOD UREA NITROGEN 10 MG/DL (9-23); CALCIUM LEVEL 9.2 MG/DL (8.5-10.1); CARBON DIOXIDE LEVEL 24 MMOL/L (20-31); CHLORIDE LEVEL 113 MMOL/L (98-107); CREATININE FOR GFR 0.51 MG/DL (0.55-1.30); GLOMERULAR FILTRATION RATE > 60.0 (>58); GLUCOSE, FASTING 95 MG/DL (60-100); POTASSIUM SERUM 4.2 MMOL/L (3.5-5.1); SODIUM LEVEL 142 MMOL/L (136-145)
[2024-06-22 08:30] VITALS: BP 124/69; TEMP 97.5; O2SAT 98
[2024-06-22] MEDS: DULoxetine 20MG CAP (CYMBALTA) PO SCH (08:51)
[2024-06-22] MEDS: ACETAMINOPHEN 325 MG TAB PO PRN (08:55)
[2024-06-22 12:00] VITALS: BP 115/71; TEMP 97.9; O2SAT 100
[2024-06-22] MEDS ORDERED: NICO21PAT TD (13:29)
[2024-06-22] MEDS ORDERED: SENO8.6T5 PO (13:29)
[2024-06-22] MEDS ORDERED: VARE1TAB2 PO (13:29)
[2024-06-24] MEDS ORDERED: VARENICLINE 1MG TABLET PO SCH (08:30)
[2024-06-28] MEDS ORDERED: VARENICLINE 1MG TABLET PO SCH (08:30)
== END 2024-06-22 14:21 | disposition home or self-care (01) ==
LOC: M ED 10:43 → M ED INP 14:43 → M MSPAV 16:23
PROVIDERS: ADMIT Student in an Organized Health Care Education/Training Program; ATTEND Student in an Organized Health Care Education/Training Program
DX: D50.8 Other iron deficiency anemias (principal); R42 Dizziness and giddiness; Z98.84 Bariatric surgery status; F17.218 Nicotine dependence, cigarettes, with other nicotine-induced disorders; E11.9 Type 2 diabetes mellitus without complications; R06.09 Other forms of dyspnea; M79.7 Fibromyalgia; Z79.84 Long term (current) use of oral hypoglycemic drugs; Z79.899 Other long term (current) drug therapy; Z88.8 Allergy status to other drugs, medicaments and biological substances
CPT/HCPCS: 36415; 36430; 70450; 71250; 74176; 80047; 80048; 80076; 81001; 82607; 82728; 82746; 83550; 84439; 84443; 85025; 85027; 85610; 85730; 86850; 86900; 86901; 86920; 96374; 96376; 99285; J1756; P9016

== ENCOUNTER 2025-07-20 06:56 | Day surgery (SDC) | payer OTHER ==
[~2025-07-20] VITALS: Ht 162.6 cm; Wt 76.2 kg
[~2025-07-20 06:56] MED LIST changes: -DIPH50CA PO; +DIPH50CA31 PO; +FERR325T19 PO; +META-10 PO; -META1TAB22 PO; +NICO21PAT TD; +SENN-225 PO; +VARE1TAB2 PO; +VITA100093 PO; +[UNRECOGNIZED DRUG - CODE] PO
[2025-07-20] MEDS ORDERED: LR 1,000 ML IV SCH (07:35)
[2025-07-20] MEDS ORDERED: LIDOCAINE 2% 100 MG/5 ML SDV (FOR ANES.) As Ordered ONE (07:39)
[2025-07-20] MEDS ORDERED: dexAMETHasone 4 MG/ML 1 ML VIAL As Ordered ONE (07:39)
[2025-07-20] MEDS ORDERED: ONDANSETRON 4MG/2ML VIAL As Ordered ONE (07:39)
[2025-07-20] MEDS ORDERED: KETOROLAC 30 MG/ML 1 ML VIAL As Ordered ONE (07:39)
[2025-07-20] MEDS ORDERED: MIDAZOLAM INJ 2 MG/2 ML VIAL As Ordered ONE (07:40)
[2025-07-20] MEDS ORDERED: ACETAMINOPHEN 1000MG/100ML IV BAG As Ordered ONE (08:44)
[2025-07-20] MEDS ORDERED: HYDROMORPHONE HCL 0.5 MG/0.5 ML SYRINGE IV PRN (09:10)
[2025-07-20] MEDS ORDERED: MORPHINE 2 MG/ML 1 ML VIAL IV PRN (09:10)
[2025-07-20 09:55] VITALS: BP 121/67; TEMP 97; O2SAT 100
== END 2025-07-20 10:13 | disposition home or self-care (01) ==
LOC: M SDC 06:56
PROVIDERS: ATTEND Orthopaedic Surgery Hand Surgery
DX: G56.02 Carpal tunnel syndrome, left upper limb (principal); E11.40 Type 2 diabetes mellitus with diabetic neuropathy, unspecified; E78.00 Pure hypercholesterolemia, unspecified; D50.9 Iron deficiency anemia, unspecified; M79.7 Fibromyalgia; F17.210 Nicotine dependence, cigarettes, uncomplicated; Z79.899 Other long term (current) drug therapy; Z79.84 Long term (current) use of oral hypoglycemic drugs; Z88.8 Allergy status to other drugs, medicaments and biological substances; Z98.84 Bariatric surgery status
CPT/HCPCS: 29848; 81025; J0131; J0665; J1100; J2250; J2405; J3010

== ENCOUNTER 2025-07-29 14:53 | Outpatient (CLI) | payer OTHER ==
[~2025-07-29] VITALS: Ht 162.6 cm; Wt 72.7 kg
[~2025-07-29 14:53] MED LIST changes: +ALBUTEROL SULFATE 2.5 MG/0.5 ML INH CONCENTRATE NEB SOLN INH PRN; +EPINEPHrine INJ 1 MG/ML 1ML AMP IM PRN; +diphenhydrAMINE 50 MG/ML VIAL IV PRN
[2025-07-29 15:20] VITALS: BP 131/73; O2SAT 93
[2025-07-29] MEDS: FERRIC CARBOXYMALTOSE 750 MG (VIAL MATE) IN 100ML NS IV ONE (15:33)
[2025-07-29 16:00] VITALS: BP 119/70; O2SAT 96
== END 2025-07-29 16:05 ==
LOC: M INFU 14:53
PROVIDERS: ATTEND Family Medicine
DX: D50.9 Iron deficiency anemia, unspecified (principal); Z88.8 Allergy status to other drugs, medicaments and biological substances
CPT/HCPCS: 96365; J1439

== ENCOUNTER 2025-08-05 15:03 | Outpatient (CLI) | payer OTHER ==
[~2025-08-05] VITALS: Ht 162.6 cm; Wt 72.0 kg
[2025-08-05 15:10] VITALS: BP 130/77; O2SAT 97
[2025-08-05] MEDS: FERRIC CARBOXYMALTOSE 750 MG (VIAL MATE) IN 100ML NS IV ONE (15:21)
[2025-08-05 16:00] VITALS: BP 127/82; O2SAT 99
== END 2025-08-05 16:00 | disposition home or self-care (01) ==
LOC: M INFU 15:03
PROVIDERS: ATTEND Family Medicine
DX: D50.9 Iron deficiency anemia, unspecified (principal); Z88.5 Allergy status to narcotic agent
CPT/HCPCS: 96365; J1439